=== PATIENT | male | born 1975 | race Caucasian/White ===

== ENCOUNTER 2024-02-07 08:41 | Outpatient (CLI) | payer OTHER, SELFPAY ==
--- NOTE | 2024-02-07 09:01 | XR_ITS ---
FINAL REPORT TECHNIQUE: Bone densitometry calculations of the lumbar spine and left hip were obtained. CLINICAL HISTORY: ABNORMAL LEVEL OF OTHR SERUM ENZYMES COMPARISON: None FINDINGS: Using L1-4, the bone mineral density of the spine is 0.989 g/cm2, corresponding to T-score of -0.9. Using the left hip, the bone mineral density of the femoral neck is 0.870 g/cm2, corresponding to a T-score of -1.1. NOTE: T-score: Standard deviation compared with peak bone mass of young adult mean. *Following the recommendations of the International Society of Bone densitometry, classification of hip BMD is based on the lower of two T-scores; total hip or femoral neck. IMPRESSION: Diminished bone mineral density of the left hip consistent with osteopenia. Diminished bone mineral density of the lumbar spine consistent with borderline osteopenia. Reviewed, Interpreted and Dictated by Ksenia Schafer MD Transcribed by Angie Overton Authenticated and . [facility]
== END 2024-02-07 23:59 | disposition home or self-care (01) ==
LOC: RAD 08:47
PROVIDERS: PCP Nurse Practitioner Family; Visit Provider Nurse Practitioner Family
DX: R74.8 Abnormal levels of other serum enzymes (principal)
CPT/HCPCS: 77080